=== PATIENT | male | born 1980 | race American Indian/Alaskan Native ===

== ENCOUNTER 2021-12-11 21:56 | Emergency (ER) | payer SELFPAY ==
[2021-12-11 22:12] VITALS: BP 141/86
--- NOTE | 2021-12-12 08:22 | Emergency Department Report ---
- General Chief Complaint: Wound/Laceration Stated Complaint: CUT FINGER Time Seen by Provider: 12/12/21 08:00 Source: patient Mode of arrival: Ambulatory Limitations: No Limitations - History of Present Illness Initial Comments: 41-year-old -[place] male presents to the emergency room complaining of a cut to his left index finger on the yard to yesterday evening approximately 6 PM. Patient is unaware if he is up-to-date on his tetanus. Bleeding is controlled. Bandages placed. -: hour(s) (15) Extremity Location: Left: Hand (First index) Place: home Patient Tetanus UTD: No Context: accidental, sharp object use, other (Guarding she will) Associated Symptoms: loss of feeling/numbness. denies: pain Treatments Prior to Arrival: bandage - Related Data Previous Rx's Medication Instructions Recorded Last Taken Type Clindamycin [Clindamycin CAP] 300 mg PO Q8H 7 Days #21 cap 12/12/21 Unknown Rx Allergies Allergy/AdvReac Type Severity Reaction Status Date / Time No Known Allergies Allergy Verified 12/12/21 09:43 ED Review of Systems ROS: Stated complaint: CUT FINGER Other details as noted in HPI Comment: All other systems reviewed and negative ED Past Medical Hx - Medications Home Medications: Home Medications Medication Instructions Recorded Confirmed Last Taken Type Clindamycin [Clindamycin CAP] 300 mg PO Q8H 7 Days #21 cap 12/12/21 Unknown Rx ED Physical Exam - General Limitations: No Limitations General appearance: alert, in no apparent distress - Head Head exam: Present: atraumatic, normocephalic - Eye Eye exam: Present: normal appearance - ENT ENT exam: Present: mucous membranes moist - Respiratory Respiratory exam: Absent: respiratory distress - Cardiovascular Cardiovascular Exam: Present: regular rate - Expanded Upper Extremity Exam Left Shoulder Exam: Present: normal inspection Upper Arm exam: Present: normal inspection Elbow exam: Present: normal inspection Forearm Wrist exam: Present: normal inspection Hand Wrist exam: Present: laceration (Index finger, no active bleeding, nontender to touch, exposure of adipose tissue) - Back Exam Back exam: Present: full ROM - Neurological Exam Neurological exam: Present: alert, oriented X3, normal gait - Psychiatric Psychiatric exam: Present: normal affect, normal mood ED Course Vital Signs 12/11/21 22:03 Temperature 98.0 F Pulse Rate 94 H Respiratory 18 Rate Blood Pressure 141/86 O2 Sat by Pulse 99 Oximetry - Laceration /Wound Repair Left Palm Finger Wound Location: upper extremity Wound Length (cm): 2 Wound's Depth, Shape: into muscle, linear Wound Explored: no foreign body removed Irrigated w/ Saline (ccs): 250 Betadine Prep?: Yes Anesthesia: 1% Lidocaine Volume Anesthetic (ccs): 2 Wound Debrided: minimal Wound Repaired With: sutures Suture Size/Type: 4:0, nylon Number of Sutures: 4 Layer Closure?: No Sterile Dressing Applied?: Yes Progress: Tolerated well ED Medical Decision Making - Medical Decision Making 41-year-old -[place] male presents to the emergency room complaining of a cut to his left index finger on the yard to yesterday evening approximately 6 PM. Patient is unaware if he is up-to-date on his tetanus. Bleeding is controlled. Bandages placed. X-ray has been ordered. Wound will be cleaned and dressed. Not able to procedure as been open too long. Critical care attestation.: If time is entered above; I have spent that time in minutes in the direct care of this critically ill patient, excluding procedure time. ED Disposition Clinical Impression: Laceration of finger of left hand Disposition: HOME / SELF CARE / HOMELESS Is pt being admited?: No Does the pt Need Aspirin: No Condition: Stable Additional Instructions: Complete antibiotics as prescribed. Keep wound clean and dry. Tylenol or ibuprofen as needed for pain management. Return back in 10 to 14 days for sutures to be removed. Prescriptions: Clindamycin [Clindamycin CAP] 300 mg PO Q8H 7 Days #21 cap Referrals: CHARO CLEMENTE MD [Primary Care Provider] - 3-5 Days Forms: Work/School Release Form(ED) Print Language: NIGERIEN
--- NOTE | 2021-12-12 08:39 | XRay Report ---
LEFT FINGERS 3 VIEWS INDICATION: injury to index finger. COMPARISON: None. IMPRESSION: 3 views of the left index finger are presented. Soft tissue laceration is noted in the anterior soft tissues near the level of the distal interphalangeal joint. There is no obvious soft ti ssue foreign body on x-ray. No acute osseous abnormality or joint pathology. Signer Name: Ottoniel Francis Jr, MD Signed: 12/12/2021 8:35 AM Workstation Name: [id number]
[2021-12-12] MEDS ORDERED: LIDOCAINE-MPF (1%) 10 MG/1 ML VIAL 5 ML INFILTRATI SCH (10:00)
== END 2021-12-12 10:37 | disposition home or self-care (01) ==
LOC: ED 21:56
DX: S61.211A Laceration without foreign body of left index finger without damage to nail, initial encounter (principal); Z79.899 Other long term (current) drug therapy; W26.8XXA Contact with other sharp object(s), not elsewhere classified, initial encounter; Y93.89 Activity, other specified; Y92.89 Other specified places as the place of occurrence of the external cause; Y99.8 Other external cause status
CPT/HCPCS: 12001; 73140; 99283; J3490